=== PATIENT | male | born 1960 | race African-American/Black ===

== ENCOUNTER 2021-07-16 23:39 | Emergency (ER) | payer OTHER ==
[~2021-07-16] VITALS: Ht 185.4 cm; Wt 104.0 kg
[2021-07-17 01:15] VITALS: BP 152/90
[2021-07-17] MEDS ORDERED: TRAM-48 PO (01:26)
[2021-07-17] MEDS ORDERED: CYCL10TA2 PO (01:26)
--- NOTE | 2021-07-17 01:27 | PHYS DOC ---
General Adult EDM: Chief Complaint: MULTIPLE TRAUMA/FALL HPI: HPI: Patient is a 60 year old male presents evaluation after trip and fall. Fall happened earlier this evening. Patient states he thinks he stepped into a syncopal. Patient complains of right shoulder pain, right thumb pain, and bilateral knee pain. Patient arrived by private vehicle ambulated into the ER with a steady gait. Patient has full range of motion of right shoulder bilateral knees and right thumb. Right throat does appear to have some mild swelling and deformity despite full range of motion. Patient has some mild swelling right knee with an overlying abrasion. Review of Systems: Review of Systems: Constitutional: Denies fever or chills. [] Eyes: Denies change in visual acuity. [] HENT: Denies nasal congestion or sore throat. [] Respiratory: Denies cough or shortness of breath. [] Cardiovascular: Denies chest pain or edema. [] GI: Denies abdominal pain, nausea, vomiting, bloody stools or diarrhea. [] : Denies dysuria. [] Musculoskeletal: Denies back pain or joint pain. [positive knee pain positive thumb pain positive shoulder pain] Integument: Denies rash. [positive abrasion] Neurologic: Denies headache, focal weakness or sensory changes. [] Endocrine: Denies polyuria or polydipsia. [] Lymphatic: Denies swollen glands. [] Psychiatric: Denies depression or anxiety. [] Heart Score: C/O Chest Pain: N/A Risk Factors: Risk Factors: DM, Current or recent (<one month) smoker, HTN, HLP, family history of CAD, obesity. Risk Scores: Score 0 - 3: 2.5% MACE over next 6 weeks - Discharge Home Score 4 - 6: 20.3% MACE over next 6 weeks - Admit for Clinical Observation Score 7 - 10: 72.7% MACE over next 6 weeks - Early Invasive Strategies Allergies: Allergies: Allergies Coded Allergies Type Severity Reaction Last Updated Verified Penicillins Allergy Severe RESP DESTRESS 07/17/21 Yes aspirin Allergy Severe DIFF BREATHING 07/17/21 Yes Physical Exam: PE: Constitutional: Well developed, well nourished, no acute distress, non-toxic appearance. [] HENT: Normocephalic, atraumatic, bilateral external ears normal, oropharynx moist, no oral exudates, nose normal. [] Eyes: PERRLA, EOMI, conjunctiva normal, no discharge. [] Neck: Normal range of motion, no tenderness, supple, no stridor. [] Cardiovascular:Heart rate regular rhythm, no murmur [] Lungs & Thorax: Bilateral breath sounds clear to auscultation [] Abdomen: Bowel sounds normal, soft, no tenderness, no masses, no pulsatile masses. [] Skin: Warm, dry, no erythema, no rash. [] Back: No tenderness, no CVA tenderness. [] Extremities: No tenderness, no cyanosis, no clubbing, ROM intact, no edema. [] Neurologic: Alert and oriented X 3, normal motor function, normal sensory function, no focal deficits noted. [] Psychologic: Affect normal, judgement normal, mood normal. [] EKG: EKG: [] Radiology/Procedures: Radiology/Procedures: [] Impression: Xray thumb No acute fracture or dislocation Course & Med Decision Making: Course & Med Decision Making Pertinent Labs and Imaging studies reviewed. (See chart for details) []Patient evaluated based on exam -- no acute fracture or dislocation shoulder or knees. based on HPI/PE Patient states left thumb looks deformed.-- despite full range of motion. Xray negative Dragon Disclaimer: Dragon Disclaimer: This electronic medical record was generated, in whole or in part, using a voice recognition dictation system. Departure Departure Impression: Primary Impression: Fall Additional Impressions: Abrasion Knee pain Shoulder pain Thumb pain Disposition: 01 HOME / SELF CARE / HOMELESS Condition: STABLE Referrals: NO PCP (PCP) Patient Instructions: Abrasions, Musculoskeletal Pain Scripts Tramadol Hcl (ULTRAM) 50 Mg Tablet 1 TAB PO PRN Q6HRS PRN for pain MDD 4 Tablet(s) for 7 Days, #28 TAB 0 Refills Prov: THUY MEYER I DO 07/17/21 Cyclobenzaprine Hcl (CYCLOBENZAPRINE HCL) 10 Mg Tablet 1 TAB PO QHS, #20 TAB Prov: THUY MEYER I DO 07/17/21 THUY MEYER I DO Jul 17, 2021 01:27
--- NOTE | 2021-07-17 01:44 | RAD ---
Right hand x-rays 3 views HISTORY: Right hand pain. FINDINGS: No fracture. No dislocation. 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 Mil d osteoporosis of the first MTP joint with mild joint space narrowing and mild bone spurring. IMPRESSION: No acute osseous injury of the right hand. Osteoarthritis. See above. Electronically signed by: Ish Payne MD (07/17/2021 1:41 AM) [email or web address]
== END 2021-07-17 02:19 | disposition home or self-care (01) ==
LOC: ER 23:39
DX: S40.211A Abrasion of right shoulder, initial encounter (principal); S60.311A Abrasion of right thumb, initial encounter; S80.212A Abrasion, left knee, initial encounter; S80.211A Abrasion, right knee, initial encounter; Z88.0 Allergy status to penicillin; Z88.6 Allergy status to analgesic agent; W01.0XXA Fall on same level from slipping, tripping and stumbling without subsequent striking against object, initial encounter; Y93.89 Activity, other specified; Y92.89 Other specified places as the place of occurrence of the external cause; Y99.8 Other external cause status
CPT/HCPCS: 73130; 99283